=== PATIENT | male | born 1945 | race Caucasian/White ===

== ENCOUNTER → 2019-07-31 | Outpatient (CLI) | payer MEDICARE ==
[2015-02-17 19:49] VITALS: BP 168/90
[~2019-07-31] MED LIST: CYCL10TA2 PO; HYDR-2761 PO
--- NOTE | 2019-07-31 17:20 | KCIC ---
LUMBAR SPINE WO CONTRAST Date: 07/31/2019 2:00 PM Indication: Low back pain with left lower extremity radiculopathy Comparison: CT abdomen pelvis 09/25/2007. Technique: Multi-planar multi-weighted magnetic resonance imaging of the lumbar spine was performed without intravenous contrast using the standard lumbar spine protocol. FINDINGS: Straightening of the lumbar lordosis. Trace retrolisthesis at L3-4 and L4-5. No acute fracture. Moderate to severe multilevel degenerative disc desiccation and disc height loss. Partial fusion across the L2-3 disc space on the left. The conus terminates at a normal level. No abnormal signal is seen within the visualized distal spinal cord. No clumping of intrathecal nerve roots. Right renal cyst. T12-L1: Disc bulge. Mild left facet arthropathy and ligamentum flavum thickening. No significant spinal stenosis or neural foraminal narrowing. L1-L2: Disc bulge. Mild facet arthropathy. Mild spinal stenosis and right lateral recess narrowing. Mild right neural foraminal narrowing. L2-L3: Disc bulge with large left far lateral disc osteophyte. Mild facet arthropathy. No significant spinal stenosis or neural foraminal narrowing. L3-L4: Disc bulge with large left far lateral disc osteophyte. Mild facet arthropathy. Mild spinal stenosis. Severe left lateral recess narrowing. Moderate bilateral neural foraminal narrowing. L4-L5: Disc bulge with bilateral far lateral protrusions. Mild to moderate facet arthropathy. Mild to moderate spinal stenosis and lateral recess narrowing. Moderate to severe bilateral neural foraminal narrowing. L5-S1: Disc bulge with right foraminal protrusion. Mild facet arthropathy. No spinal stenosis. Moderate to severe right and mild left neural foraminal narrowing. IMPRESSION: Moderate to severe lumbar spondylosis, detailed level by level above. Electronically signed by: Clark Cade MD (07/31/2019 5:17 PM) [facility]
== END | disposition home or self-care (01) ==
LOC: KCIC MRI 13:51
PROVIDERS: ATTEND Orthopaedic Surgery
DX: M47.26 Other spondylosis with radiculopathy, lumbar region (principal); M51.17 Intervertebral disc disorders with radiculopathy, lumbosacral region; M51.15 Intervertebral disc disorders with radiculopathy, thoracolumbar region; M48.07 Spinal stenosis, lumbosacral region; M51.36 Other intervertebral disc degeneration, lumbar region
CPT/HCPCS: 72148

== ENCOUNTER → 2021-02-11 | Outpatient (CLI) | payer MEDICARE ==
[2015-02-17 19:49] VITALS: BP 168/90
[~2021-02-11] MED LIST changes: +REGADENOSON 0.4 MG/5 ML DISP.SYRIN. IV ONE
--- NOTE | 2021-02-11 13:44 | RAD ---
MR#: [id number] Date of Study: 02/11/2021 Ordering Physician: DENILSON ESPARZA, Referring Physician: DENILSON ESPARZA, Tech: Juan Antonio Ramirez MBA, RDMS, RVT, RDCS, RTR APPROVED REPORT Patient Location : OUT-PATIENT Indications Lower Extremity Edema : Bilateral Findings Limited grayscale images of the bilateral saphenofemoral junctions are grossly unremarkable. The right great saphenous vein measures 4.7 mm and the left great saphenous vein measures 4.2 mm. The bilateral greater and lesser saphenous veins did not reveal any evidence of reflux. Critical Notification Critical Value: No <Conclusion> 1. Negative for reflux in the bilateral greater and lesser saphenous veins. Signed by : Nathaniel Leggett, Electronically Approved : 02/11/2021 13:44:09
--- NOTE | 2021-02-11 13:46 | RAD ---
MR#: [id number] Date of Study: 02/11/2021 Ordering Physician: DENILSON ESPARZA, Referring Physician: DENILSON ESPARZA, Tech: Juan Antonio Ramirez MBA, RDMS, RVT, RDCS, RTR APPROVED REPORT Patient Location: OUT-PATIENT Indications PAD VELOCITY AND DOPPLER WAVEFORM ANALYSIS RIGHT cm/secWaveformSeverity LEFT cm/secWaveform Severity dCFA 68.0BiphasicdCFA 68.0Triphasic Prof Fem Art. 75.0BiphasicProf Fem Art. 41.0Triphasic Fem Art Prox. 102.0TriphasicFem Art Prox. 73.0Triphasic Fem Art Mid. 65.0TriphasicFem Art Mid. 93.0Triphasic Fem Art Dist. 87.0TriphasicFem Art Dist. 45.0Triphasic Pop Art(Fossa) 55.0TriphasicPop Art(AK) 54.0Triphasic ARCHITECTURAL INTERN Prox. 70.0TriphasicPTA Prox. 70.0Triphasic ARCHITECTURAL INTERN Dist. 41.0TriphasicPTA Dist. 100.0Triphasic GARTH Prox. 59.0TriphasicATA Prox. 45.0Triphasic DPA 10MonophasicDPA 21Monophasic Findings Grayscale images of the bilateral lower extremity arterial vessels demonstrates mild diffuse plaque. Bilaterally there are triphasic waveforms from the common femoral artery to the popliteal segment. N o focal high-grade stenosis is identified. Bilaterally the peroneal artery is not visualized. Bilateral posterior tibial and anterior tibial velocities are within normal limits with triphasic wav eforms. There is likely small vessel disease at the level of the dorsalis pedis artery bilaterally with dimin ished waveforms. Critical Notification Critical Value: No <Conclusion> 1. No significant above-knee disease bilaterally 2. Bilateral two-vessel runoff with nonvisualization of the peroneal arteries 3. Severe small vessel disease at the level of the ankle. Signed by : Nathaniel Leggett, Electronically Approved : 02/11/2021 13:45:51
--- NOTE | 2021-02-11 17:34 | CARD ---
MR#: [id number] Date of Study: 02/11/2021 Ordering Physician: DENILSON ESPARZA, Referring Physician: Lesly OLSON: Jose Small [facility] APPROVED REPORT EXAM: Two-dimensional and M-mode echocardiogram with Doppler and color Doppler. Other Information Quality : AverageHR: 83bpm Rhythm : NSR INDICATION Dyspnea 2D DIMENSIONS Left Atrium(2D)3.7 (1.6-4.0cm)IVSd1.2 (0.7-1.1cm) Aortic Root(2D)3.7 (2.0-3.7cm)LVDd4.0 (3.9-5.9cm) LVOT Diameter2.3 (1.8-2.4cm)PWd1.2 (0.7-1.1cm) RVOT Diameter2.6 cmLVDs2.1 (2.5-4.0cm) FS (%) 48.1 %SV57.2 ml Aortic Valve AoV Peak Carlos A.163.8cm/sAoV VTI27.5cm AO Peak GR.10.7mmHgLVOT Peak Carlos A.121.5cm/s AO Mean GR.5mmHgAVA (VMAX)3.21cm2 Mitral Valve MV E Nwswdlor05.9cm/sMV E Peak Gr.6mmHg MV DECEL [id number] A Lakmrieq190.5cm/s MV E Mean Gr.2mmHgE/A Ratio0.6 Pulmonary Valve PV Peak Vrwdlceu849.0cm/s Tricuspid Valve TR P. Xlixwfiy948dx/sTR Peak Gr.35mmHg Pulmonary Vein S1 Wapuilwz90.1cm/sD2 Lwicijfe56.5cm/s LEFT VENTRICLE The left ventricle is normal size. There is mild concentric left ventricular hypertrophy. The left ve ntricular systolic function is normal and the ejection fraction is within normal range. Left ventricu lar ejection fraction is 60 to 65%. There is normal LV segmental wall motion. Transmitral Doppler nehal w pattern is Grade I-abnormal relaxation pattern. No left ventricle thrombus noted on this study. The re is no ventricular septal defect visualized. There is no left ventricular aneurysm. There is no mas s noted in the left ventricle. RIGHT VENTRICLE The right ventricle is normal size. The right ventricular systolic function is normal. ATRIA The left atrium is borderline dilated. The right atrium is mildly dilated. AORTIC VALVE The aortic valve is mildly sclerotic. Doppler and Color Flow revealed no significant aortic regurgita tion. There is no significant aortic valvular stenosis. There is no aortic valvular vegetation. MITRAL VALVE The mitral valve is normal in structure and function. There is no evidence of mitral valve prolapse. There is no mitral valve stenosis. Doppler and Color-flow revealed trace to mild mitral regurgitation . TRICUSPID VALVE The tricuspid valve is normal in structure and function. Doppler and Color Flow revealed trace to mil d tricuspid regurgitation. The pulmonary artery systolic pressure is estimated at 30-35 mmHg. There i s no tricuspid valve prolapse or vegetation. There is no tricuspid valve stenosis. PULMONIC VALVE Doppler and Color Flow revealed no pulmonic valvular regurgitation. There is no significant pulmonic valvular stenosis. GREAT VESSELS The aortic root is normal in size. The ascending aorta is normal in size. The pulmonary artery is nor mal. The IVC is normal in size and collapses >50% with inspiration. PERICARDIAL EFFUSION There is no pleural effusion. There is no evidence of significant pericardial effusion. Critical Notification Critical Value: No <Conclusion> The left ventricle is normal size. The left ventricular systolic function is normal and the ejection fraction is within normal range. Left ventricular ejection fraction is 60 to 65%. There is mild concentric left ventricular hypertrophy. Doppler and Color Flow revealed no significant aortic regurgitation. There is no significant aortic valvular stenosis. Doppler and Color-flow revealed trace to mild mitral regurgitation. Doppler and Color Flow revealed trace to mild tricuspid regurgitation. The pulmonary artery systolic pressure is estimated at 30-35 mmHg. Signed by : Kirk Ramos MD Electronically Approved : 02/11/2021 17:34:03
--- NOTE | 2021-02-11 17:54 | RAD ---
MR#: [id number] Date of Study: 02/11/2021 Ordering Physician: DENILSON ESPARZA, Referring Physician: DHAVAL OLSON Tech: DIMITRI Galloway APPROVED REPORT Test Type: Pharmacological Stress Nurse/Tech: Christi Singer RN Test Indications: Dyspnea on exertion Cardiac History: HTN, See EMR. Medications: See EMR. Medical History: COPD, X-Smoker=Quit 5 yrs ago, See EMR. Resting ECG: SR Resting Heart Rate: 68 bpm Resting Blood Pressure: 159/80mmHg Pretest Chest Pain: No chest pain Nurse/Tech Notes Lungs CTA, Heart tones regular. Consent: The procedure was explained to the patient in lay terms. Informed consent was witnessed. Eduardo eout was entered into [employer]. History and Stress Test performed by DIMITRI Galloway Pharm. Details Pharmacologic stress testing was performed using 0.4mg per 5ml of regadenoson given intravenously ove r 7-10 seconds. Stress Symptoms Dyspnea POST EXERCISE Reason for Termination: Infusion complete Max HR: 91 bpm Max Blood Pressure: 150/71mmHg Blood Pressure response to exercise: Normal blood pressure response during stress. Heart Rate response to exercise: WNL Chest Pain: No. Arrhythmia: No. ST Change: No. INTERPRETATION Stress EKG Conclusion: The resting EKG shows a sinus rhythm with minimal nonspecific T wave changes. The stress EKG shows no significant changes from baseline. No EKG evidence of stress-induced ischemia. Imaging Protocol IMAGE PROTOCOL: Rest Tc-99m/stress Tc-99m 1 day Rest: Stress: Viability: Radiopharm.Tc99m TckqqciehTh80p Sestamibi [id number] 31mCi Duration 15min. 10min. Img Date 02/11/2021 02/11/2021 Inj-Img Azjd16lqa. 60min. Rest Admin Site:IV - Right HandAdministrator:DIMITRI Galloway Stress Admin Site: IV - Right HandAdministrator: DHAVAL FreyTCB, ARRT (R)(N) STRESS DATA End Diast. Vol.95.0mlLVEDV index BSA44.0ml End Syst. Vol.33.0mlLVESV index BSA15.0ml Myocardial Qunh248.0gEject. Mzraikun13.0% Stress Scores Regional WT1.00Summed WT13.00 Regional WM0.00Summed WM2.00 LV Perfusion The stress scans show a mild inferior defect. The rest scans show a mild inferior defect. Nuclear imaging shows a fixed inferior defect. 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 A possible attenuation defect cannot be excluded. Wall Motion Left ventricular systolic function is normal with no regional wall motion abnormalities and an ejecti on fraction of 66%. LV Perf. Quant 17 Seg. SSS4.00 17 Seg. SRS5.00 17 Seg. SDS1.00 Stress Defect Extent (% LAD)0.00Rest Defect Extent (% LAD)0.00Rev. Defect Extent (% LAD)0.00 Stress Defect Extent (% LCX) 16.30Rest Defect Extent (% LCX)5.00Rev. Defect Extent (% LCX)8.80 Stress Defect Extent (% RCA)11.10Rest Defect Extent (% RCA)24.40Rev. Defect Extent (% RCA)2.20 Stress Defect Extent (% MICHAEL)6.70Rest Defect Extent (% MICHAEL)5.70Rev. Defect Extent (% MICHAEL)3.30 Conclusion 1. No EKG evidence of stress-induced ischemia. 2. Nuclear imaging shows a fixed inferior defect most consistent with a prior infarct with mild von- infarct reversibility. 3. An attenuation defect cannot be entirely excluded. 4. LV systolic function is normal with no regional wall motion abnormalities. Ejection fraction is 6 6%. 5. Moderate to moderately low risk Lexiscan nuclear stress test. Signed by : Kirk Ramos MD Electronically Approved : 02/11/2021 17:54:11
== END ==
LOC: US 08:32
PROVIDERS: ATTEND Internal Medicine Cardiovascular Disease
DX: I08.3 Combined rheumatic disorders of mitral, aortic and tricuspid valves (principal); I70.203 Unspecified atherosclerosis of native arteries of extremities, bilateral legs; R06.09 Other forms of dyspnea; R60.0 Localized edema
CPT/HCPCS: 78452; 93017; 93306; 93925; 93970; A9500; J2785